=== PATIENT | male | born 1960 | race Caucasian/White ===

== ENCOUNTER 2018-09-04 10:14 | Emergency (ER) | payer BC ==
[2018-09-04] MEDS ORDERED: Acetaminophen/HYDROcodone 325-5 MG Tab ONE ×2 (10:20→10:25)
--- NOTE | 2018-09-04 11:33 | EDM.PDOC ---
ED HPI GENERAL MEDICAL PROBLEM - General Chief Complaint: Upper Extremity Injury/Pain Stated Complaint: right shoulder pain Time Seen by Provider: 09/04/18 11:29 Source of Information: Reports: Patient, RN History Limitations: Reports: No Limitations - History of Present Illness INITIAL COMMENTS - FREE TEXT/NARRATIVE: 58 yr male presents to ER with dislocated right shoulder pain. States he has had surgery to this shoulder about 1/5 yr ago. No current medications. No heart history, no medications. He is allergic to Ancef, Sulfa. He was holding onto above his head on the ice vehicle and shoulder dislocated. Numbness to right hand and pain to shoulder. States this has happened about 4 times now. Right Shoulder Pain Score (Numeric/FACES): 8 - Related Data Allergies Allergy/AdvReac Type Severity Reaction Status Date / Time cefazolin [From Ancef] Allergy Hives Verified 09/04/18 11:43 Sulfa (Sulfonamide Allergy Anaphylactic Verified 09/04/18 11:44 Antibiotics) Shock Home Meds: Home Meds NK [No Known Home Meds] 09/04/18 [History] Review of Systems - Review of Systems Review Of Systems: See Below Constitutional: Reports: No Symptoms Eyes: Reports: Glasses Ears: Reports: No Symptoms Nose: Reports: No Symptoms Mouth/Throat: Reports: No Symptoms Respiratory: Reports: No Symptoms Cardiovascular: Reports: No Symptoms Musculoskeletal: Reports: Shoulder Pain Skin: Reports: No Symptoms Neurological: Reports: Numbness (right hand). Denies: Confusion, Dizziness Psychiatric: Reports: No Symptoms ED EXAM, GENERAL - Physical Exam Exam: See Below Exam Limited By: No Limitations General Appearance: Alert, No Apparent Distress Ears: Hearing Grossly Normal Nose: Normal Inspection Throat/Mouth: Normal Inspection, Normal Voice, No Airway Compromise Head: Atraumatic, Normocephalic Neck: Supple, Non-Tender Respiratory/Chest: No Respiratory Distress, Lungs Clear, Normal Breath Sounds Cardiovascular: Regular Rate, Rhythm, No Edema Peripheral Pulses: 2+: Radial (L), Radial (R) GI/Abdominal: Normal Bowel Sounds, Soft, Non-Tender Back Exam: Normal Inspection. No: Paraspinal Tenderness, Vertebral Tenderness Extremities: Arm Pain, Limited Range of Motion (to right shoulder and guarded with any movement to right arm.), Other Neurological: Alert, Oriented, Normal Cognition Psychiatric: Normal Affect, Normal Mood Skin Exam: Warm, Dry, Intact, Normal Color, Other (some redness noted to right hand, improves with gentle pressure to upper extremity and shoulder.) Lymphatic: No Adenopathy Course - Vital Signs Last Recorded V/S: Last Vital Signs Temp Pulse 78 09/04/18 13:06 Resp 18 09/04/18 13:06 BP 121/84 09/04/18 13:06 Pulse Ox 97 09/04/18 13:06 - Orders/Labs/Meds Orders: Active Orders 24 hr Category Date Time Status Oxygen Therapy Adult [Oxygen Therapy, ED] [RC] Care 09/04/18 12:52 Ordered ASDIRECTED Saline Lock Insert [OM.PC] Routine Oth 09/04/18 11:50 Ordered Meds: Medications Discontinued Medications Generic Name Dose Route Start Last Admin Trade Name Freq PRN Reason Stop Dose Admin Fentanyl 50 mcg 09/04/18 12:31 09/04/18 12:34 Sublimaze IVPUSH 09/04/18 12:32 50 mcg ONETIME ONE Administration Fentanyl 50 mcg 09/04/18 13:14 09/04/18 12:56 Sublimaze IVPUSH 09/04/18 13:15 50 mcg ONETIME ONE Administration Ketorolac Tromethamine 60 mg 09/04/18 11:35 09/04/18 11:40 Toradol IM 09/04/18 11:36 60 mg ONETIME ONE Administration Ketorolac Tromethamine Confirm 09/04/18 11:42 Toradol Administered 09/04/18 11:43 Dose 60 mg .ROUTE .STK-MED ONE Midazolam HCl 5 mg 09/04/18 11:48 Versed 1 Mg/Ml IM 09/04/18 11:49 ONETIME ONE Midazolam HCl 5 mg 09/04/18 12:51 09/04/18 12:53 Versed 1 Mg/Ml IVPUSH 09/04/18 12:52 5 mg ONETIME ONE Administration Midazolam HCl 5 mg 09/04/18 13:13 09/04/18 13:03 Versed 1 Mg/Ml IVPUSH 09/04/18 13:14 5 mg ONETIME ONE Administration Sodium Chloride 10 ml 09/04/18 11:50 Saline Flush FLUSH 09/04/18 11:51 ONETIME ONE Sodium Chloride 10 ml 09/04/18 11:50 Saline Flush FLUSH ASDIRECTED PRN Keep Vein Open - Re-Assessments/Exams Free Text/Narrative Re-Assessment/Exam: 09/04/18 13:15 Consent signed for conscious sedation. Versed 5mg IV given X 2 and Fentanyl 50 mcg IV X [address] Hawkins manipulated arm/shoulder and pop noticed as reverse of dislocation appreciated. Pt is resting well and x-ray repeated. Review of x-ray and dislocation relieved. Will discharge when awake and able to ambulate. Discharge to care of family. Rx for Vicoden/APAP 5 mg/ 325 mg 1 tablet PO every 6 hour as needed for relief of pain. 10 tablets dispensed and Rx for 10 tablets to be filled at local outpatient pharmacy. Pt plans to be in the area for 4 days fishing before returning home. Shoulder and wrist immobilizer on and recommend no movement of the arm for 1 week and return to PCP when back home. Departure - Departure Time of Disposition: 14:17 Disposition: Home, Self-Care 01 Condition: Good Clinical Impression: Dislocation of shoulder, right, closed - Discharge Information *PRESCRIPTION DRUG MONITORING PROGRAM REVIEWED*: Not Applicable *COPY OF PRESCRIPTION DRUG MONITORING REPORT IN PATIENT AMINA: Not Applicable Instructions: Acetaminophen; Hydrocodone tablets or capsules, How to Use a Shoulder Immobilizer, Shoulder Dislocation, [id number] Referrals: PCP,None [Primary Care Provider] - Forms: ED Department Discharge Additional Instructions: Follow up with your primary care provider in 1 week. Take Vicodin 1 tab every 6 hrs as needed for pain. If you need more pain medicine while you are here, all the clinic at [phone] and speak with Nicki Partida. Keep shoulder immobilizer on at all times. May remove for bathing. Do not use that arm until you follow up with your primary doctor. - My Orders Last 24 Hours: My Active Orders 09/04/18 11:50 Saline Lock Insert [OM.PC] Routine 09/04/18 12:52 Oxygen Therapy Adult [Oxygen Therapy, ED] [RC] ASDIRECTED - Assessment/Plan Last 24 Hours: My Active Orders 09/04/18 11:50 Saline Lock Insert [OM.PC] Routine 09/04/18 12:52 Oxygen Therapy Adult [Oxygen Therapy, ED] [RC] ASDIRECTED Plan: patient to follow-up with PCP within 1 week. Shoulder immobilizer to arm until f/u with PCP. May take off for shower. Vicoden 1 tablet PO every 6 hour prn pain. RTC or ER if dislocation reoccurs. Monitor hand for CMS. Discharge to care of family. Rx for Vicoden/APAP 5 mg/325 mg 1 tablet PO every 6 hour as needed for relief of pain. 10 tablets dispensed and Rx for 10 tablets to be filled at local outpatient pharmacy. Pt plans to be in the area for 4 days fishing before returning home. Shoulder and wrist immobilizer on and recommend no movement of the arm for 1 week and return to PCP when back home
[2018-09-04] MEDS ORDERED: Ketorolac 60 MG/2 ML SDV IM ONE (11:35)
[2018-09-04] MEDS ORDERED: Ketorolac 60 MG/2 ML SDV ONE (11:42)
[2018-09-04] MEDS ORDERED: Midazolam 1 MG/ML 5 ML SDV IM ONE (11:48)
[2018-09-04] MEDS ORDERED: Sodium Chloride 0.9% 10 ML Syringe FLUSH PRN (11:50)
[2018-09-04] MEDS ORDERED: Sodium Chloride 0.9% 10 ML Syringe FLUSH ONE (11:50)
[2018-09-04] MEDS ORDERED: fentaNYL 250 MCG/5 ML SDV IVPUSH ONE ×2 (12:31→13:14)
[2018-09-04] MEDS ORDERED: Midazolam 1 MG/ML 5 ML SDV IVPUSH ONE ×2 (12:51→13:13)
--- NOTE | 2018-09-04 14:53 | CR ---
RIGHT SHOULDER, 09/04/18 Comparison is made to a prior exam from earlier in the day. The glenohumeral dislocation has been reduced and demonstrates normal articular alignment on this followup exam. No fractures. The exam is otherwise unchanged from the prior. [id number] [facility]
--- NOTE | 2018-09-04 14:55 | CR ---
RIGHT SHOULDER, 09/04/18 There is anterior dislocation of the glenohumeral joint with anterior dislocation of the humeral head with resected glenoid fossa. No fractures. 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 [id number] [facility]
== END 2018-09-04 14:17 | disposition home or self-care (01) ==
LOC: LB.ED 10:14
DX: S43.014A Anterior dislocation of right humerus, initial encounter (principal); Z88.8 Allergy status to other drugs, medicaments and biological substances; X58.XXXA Exposure to other specified factors, initial encounter
CPT/HCPCS: 23650; 73020; 73030; 96372; 96374; 96375; 96376; 99283; A9270; J1885; J2250; J3010